=== PATIENT | female | born 1975 | race Two or more races ===

== ENCOUNTER 2025-05-13 17:26 | Emergency (ER) | payer MEDICAID, OTHER ==
[~2025-05-13] VITALS: Ht 160 cm; Wt 73.0 kg
[2025-05-13] MEDS: GABAPENTIN 300 MG CAP PO ONE (18:16)
[2025-05-13 18:51] LABS: Hematocrit 38.3 % (36.0-46.0); Hemoglobin 12.8 g/dL (12.2-16.2); Mean Corpuscular Hemoglobin 27.5 pg (28.0-32.0); Mean Corpuscular Volume 82.1 fL (80.0-100.0); Nucleated Red Blood Cells % 0.0 %
--- NOTE | 2025-05-13 18:54 | DVH ---
COMPUTERIZED TOMOGRAPHY OF THE HEAD WITHOUT CONTRAST REASON FOR STUDY: Right-sided facial numbness COMPARISON: None TECHNIQUE: Helical tomographic scans were obtained through the brain. 2-D coronal and sagittal refor matted images are provided. Radiation optimization: All CT scans at this facility use at least one of these dose optimization techniques: Automated exposure control mA and/or kV adjustment per patient s ize (includes targeted exams where dose is matched to clinical indication) or iterative reconstructio n. RADIATION DOSE: CTDI: 55 mGy DLP: 878 mGy-cm FINDINGS: No suspicious intracranial hyperdensity to suggest acute blood. There is no mass effect n or midline shift. There is no hydrocephalus. The suprasellar cistern is intact. The calvarium is inta ct. The visualized mastoid air cells and paranasal sinuses are clear. IMPRESSION: No acute intracranial abnormality.
[2025-05-13 19:15] LABS: Anion Gap 13 (5-15); Carbon Dioxide 25 mmol/L (20-31); Chloride 100 mmol/L (98-107); Sodium 138 mmol/L (136-145)
[2025-05-13 19:16] LABS: Calcium 9.7 mg/dL (8.7-10.4)
[2025-05-13 19:21] LABS: BUN/Creatinine Ratio 9.7 (10.0-20.0)
[2025-05-13 19:29] LABS: Blood Urea Nitrogen 7 mg/dL (9-23); Glucose 218 mg/dL (74-106); Potassium 3.0 mmol/L (3.5-5.1)
[2025-05-13] MEDS ORDERED: HYDR-3682 PO (19:55)
[2025-05-13] MEDS ORDERED: GABA-1250 PO (19:55)
--- NOTE | 2025-05-13 19:57 | ED.PDOC ---
History of Present Illness HPI Comments This patient is a pleasant but Russian-speaking only 42-year-old female who arrives the ED today for evaluation right-sided jaw numbness and tingling that is started yesterday and has continued into today. Patient denies any traumatic events. Patient denies any history of intracranial concerns. Patient states the symptoms came on abruptly and has been relatively unrelenting. Patient denies any fever nausea or vomiting. No temporal pulsatile veins noted. Patient was mildly tachycardic at arrival. Chief Complaint: Face pain Time Seen by MD: 17:32 Reviewed Notes: Nurses Notes Allergies: Coded Allergies: NO KNOWN ALLERGIES (Unverified , 05/13/25) Information Source: Patient Mode of Arrival: Ambulatory Severity: Moderate Timing: Days Duration: Since onset Prehospital treatment: None Past Medical History PAST MEDICAL HISTORY: Denies Surgical History: Denies all surgeries [employer] History: No Pertinent [employer] History Family History Family History: Reviewed,noncontributory to illness, No family hx of Cancer, No family hx of DM, No family hx of Heart buzz, No family hx of HTN, No family hx ofKidney buzz, No family hx of Liver buzz, No family hx of Lung ubzz, No family hx of Stroke Social History Smoker: Non-Smoker Alcohol: Denies ETOH Use Drugs: Denies Drug Use Lives In: Home Constitutional: denies: chills, diaphoresis, fatigue, fever, malaise, sweats, weakness, others EENTM: reports: others (Right-sided jaw tingling and numbness); denies: blurred vision, double vision, ear bleeding, ear discharge, ear drainage, ear pain, ear ringing, eye pain, eye redness, hearing loss, mouth pain, mouth swelling, nasal discharge, nose bleeding, nose congestion, nose pain, photophobia, tearing, throat pain, throat swelling, voice changes Respiratory: denies: cough, hemoptysis, orthopnea, SOB at rest, shortness of breath, SOB with excertion, stridor, wheezing, others Cardiovascular: denies: chest pain, dizzy spells, diaphoresis, Dyspnea on exertion, edema, irregular heart beat, left arm pain, lightheadedness, palpitations, PND, syncope, others Gastrointestinal: denies: abdomen distended, abdominal pain, blood streaked bowels, constipated, diarrhea, dysphagia, difficulty swallowing, hematemesis, melena, nausea, poor appetite, poor fluid intake, rectal bleeding, rectal pain, vomiting, others Genitourinary: denies: abnormal vagina bleeding, burning, dyspareunia, dysuria, flank pain, frequency, hematuria, incontinence, pain, , vagina discharge, urgency, others Neurological: denies: dizziness, fainting, headache, left sided numbness, left sided weakness, numbness, paresthesia, pre-existing deficit, right sided numbness, right sided weakness, seizure, speech problems, tingling, tremors, weakness, others Musculoskeletal: denies: back pain, gout, joint pain, joint swelling, muscle pain, muscle stiffness, neck pain, others Integumetry: denies: bruises, change in color, change in hair/nails, dryness, laceration, lesions, lumps, rash, wounds, others Allergic/Immunocompromised: denies: Difficulty Healing, Frequent Infections, Hives, Itching, others Hematologic/Lymphatic: denies: anemia, blood clots, easy bleeding, easy bruising, swollen glands, others Endocrine: denies: excessive hunger, excessive sweating, excessive thirst, excessive urination, flushing, intolerance to cold, intolerance to heat, unexplained weight gain, unexplained weight loss, others Psychiatric: denies: anxiety, bipolar disorder, depression, hopeless, panic disorder, schizophrenia, sleepless, suicidal, others Physical Exam General Appearance: Mild Distress (Moderate distress due to concerns of right jaw numbness and tingling), Normal HEENT: Pharynx Normal, TMs Normal, Other (Patient of patchy tingling and numbness to the right-sided jaw and chin area. No signs of trauma. No TMJ syndrome noted. No edema or ecchymosis. No erythema.) Neck: Full Range of Motion, Non-Tender, Normal, Normal Inspection Respiratory: Chest Non-Tender, Lungs Clear, No Accessory Muscle Use, No Respiratory Distress, Normal Breath Sounds Cardiovascular: No Edema, No JVD, No Murmur, No Gallop, Normal Peripheral Pulses, Regular Rate/Rhythm Breast Exam: Deferred Gastrointestinal: No Organomegaly, Non Tender, No Pulsatile Mass, Normal Bowel Sounds, Soft Genitalia: Deferred Pelvic: Deferred Rectal: Deferred Extremities: No calf tenderness, Normal capillary refill, Normal inspection, Normal range of motion, Non-tender, No pedal edema Neurologic: Alert, No Motor Deficits, Normal Affect, Normal Mood, No Sensory Deficits Cerebellar Function: Normal Reflexes: Normal Skin: Dry, Normal Color, Warm Lymphatic: No Adenopathy Was a procedure done? Was a procedure done?: No Differential Dx Considerations may include: Intracranial neoplasm, trigeminal neuralgia, facial neuropathy, sepsis, electrolyte abnormality X-Ray, Labs, Meds, VS Vital Signs Date Time Temp Pulse Resp B/P (MAP) Pulse Ox O2 Delivery O2 Flow Rate FiO2 05/13/25 18:30 97.8 93 20 124/75 (91) 98 97.8 05/13/25 18:30 93 20 98 Room Air 05/13/25 17:27 97.8 109 16 133/87 96 97.8 Lab Test 05/13/25 18:25 Range/Units White Blood Count 6.6 4.4-10.8 10^3/uL Red Blood Count 4.66 4.0-5.20 10^6/uL Hemoglobin 12.8 12.2-16.2 g/dL Hematocrit 38.3 36.0-46.0 % Mean Corpuscular Volume 82.1 80.0-100.0 fL Mean Corpuscular Hemoglobin 27.5 L 28.0-32.0 pg Mean Corpuscular Hemoglobin Concent 33.4 32.0-36.0 g/dL Red Cell Distribution Width 15.8 H 11.8-14.3 % Platelet Count 288 140-450 10^3/uL Mean Platelet Volume 7.8 6.9-10.8 fL Neutrophils (%) (Auto) 70.3 37.0-80.0 % Lymphocytes (%) (Auto) 19.4 10.0-50.0 % Monocytes (%) (Auto) 9.3 0.0-12.0 % Eosinophils (%) (Auto) 0.5 0.0-7.0 % Basophils (%) (Auto) 0.5 0.0-2.0 % Neutrophils # (Auto) 4.6 1.6-8.6 10 ^3/uL Lymphocytes # (Auto) 1.3 0.4-5.4 10 ^3/uL Monocytes # (Auto) 0.6 0-1.3 10 ^3/uL Eosinophils # (Auto) 0 0-0.8 10 ^3/uL Basophils # (Auto) 0 0-0.2 10 ^3/uL Nucleated Red Blood Cells 0.0 % Sodium Level 138 136-145 mmol/L Potassium Level 3.0 L 3.5-5.1 mmol/L Chloride Level 100 98-107 mmol/L Carbon Dioxide Level 25 20-31 mmol/L Anion Gap 13 5-15 Blood Urea Nitrogen 7 L 9-23 mg/dL Creatinine 0.72 0.550-1.02 mg/dL Glomerular Filtration Rate Calc 103 >90 mL/min BUN/Creatinine Ratio 9.7 L 10.0-20.0 Serum Glucose 218 H 74-106 mg/dL Calcium Level 9.7 8.7-10.4 mg/dL Current Medications Medications (Trade) Dose Ordered Sig/Elenita Route Start Time Stop Time Status Last Admin Gabapentin (Neurontin Capsule) 600 mg ONCE ONCE PO 05/13/25 17:45 05/13/25 17:46 DC 05/13/25 18:16 X-Ray, Labs, Meds, VS Comment All studies performed the ED were evaluated by me personally. Serum laboratories were remarkable for a mild hypokalemic state as well as a mild hyp erglycemic state. CT of the head were unremarkable for any acute intracranial concerns or neoplasms. Patient does not display pain concerns nor is there any pulsatile arterial activity within the temporal region. Patient appears to have some neuropathic concerned that may be related to impingement. Advised patient to utilize medication and if symptoms continue, follow up with the primary care provider for continued evaluation and management. Time of 1ST Reevaluation: 19:57 Reevaluation 1ST: Improved Consultation: PCP Patient Education/Counseling: Diagnosis, Treatment Family Education/Counseling: Diagnosis, Treatment SEPSIS Sepsis Screen Date sepsis recognized/suspect: May 13, 2025 Time Sepsis recognized/suspect: 1728 Recent Procedure: No On Antibiotic Therapy: No Respiratory Rate >20: No Heart Rate >90: Yes Temp<36 C (96.8 F) or >38.3 C: No SBP <90 or MAP <65 mmHG: No New Acute Mental Status Change: No Is the patient on CPAP, BIPAP,: No Physician Orders Head Without Contrast (05/13/25 17:41) Potassium Effervesent Tab (Klor-Con/Ef) (05/13/25 19:45) Vital Signs Date Time Temp Pulse Resp B/P (MAP) Pulse Ox O2 Delivery O2 Flow Rate FiO2 05/13/25 18:30 97.8 93 20 124/75 (91) 98 97.8 05/13/25 18:30 93 20 98 Room Air 05/13/25 17:27 97.8 109 16 133/87 96 97.8 Laboratory Tests Test 05/13/25 18:25 White Blood Count 6.6 10^3/uL (4.4-10.8) Medications Medications Dose Ordered Sig/Elenita Route Start Time Stop Time Status Last Admin Dose Admin Gabapentin 600 mg ONCE ONCE PO 05/13/25 17:45 05/13/25 17:46 DC 05/13/25 18:16 Departure 1 Departure Time of Disposition: 19:53 Impression: Primary Impression: Facial neuropathy Disposition: HOME / SELF CARE / HOMELESS Condition: Stable Additional Instructions: Advised patient utilize medication as needed for symptomatic relief. If symptoms continue, patient will need to follow up with the primary care provider for re-evaluation and possible neurologic evaluation. e-Prescriptions Hydroxyzine Hcl (Hydroxyzine Hcl) 25 Mg Tab 1 TAB PO TID, #20 TAB Prov: MYRNA NIETO PAC 05/13/25 Gabapentin (Gabapentin) 300 Mg Cap 1 CAP PO Q6HP PRN, #30 CAP 0 Refills Prov: MYRNA NIETO PAC 05/13/25 Discharged With: Self, Friend Critical Care Note Critical Care Time?: No Stability Stability form required: No Heart Score Heart Score: Heart Score Response (Comments) Value History N/A 0 EKG N/A 0 Age N/A 0 Risk Factors N/A 0 Troponin N/A 0 Total 0 MYRNA NIETO PAC May 13, 2025 19:57
[2025-05-13 20:13] VITALS: BP 136/86; PULSE 93; RESP 18; TEMP 98.2; O2SAT 99
[2025-05-13] MEDS: POTASSIUM EFFERVESENT TAB 25 MEQ PO ONE (20:20)
== END 2025-05-13 20:21 | disposition home or self-care (01) ==
LOC: ER 17:30
DX: G51.9 Disorder of facial nerve, unspecified (principal); Z79.899 Other long term (current) drug therapy
CPT/HCPCS: 36415; 70450; 80048; 82947; 85025